=== PATIENT | female | born 1995 | race Caucasian/White ===

== ENCOUNTER 2023-02-02 16:45 | Emergency (ER) | payer MEDICAID ==
[~2023-02-02] VITALS: Ht 172.7 cm; Wt 65.0 kg
[2023-02-02 16:56] VITALS: O2SAT 98
[2023-02-02] MEDS ORDERED: METH-653 MT (17:20)
[2023-02-02] MEDS ORDERED: METHOCARBAMOL 750MG TABLET PO SCH (17:30)
[2023-02-02] MEDS ORDERED: ACETAMINOPHEN 325MG TABLET PO ONE (17:30)
[2023-02-02 17:50] VITALS: BP 114/68; PULSE 75; RESP 18; TEMP 98.2
[2023-02-02] MEDS ORDERED: METHOCARBAMOL 500MG TABLET PO NR (18:00)
== END 2023-02-02 17:52 | disposition home or self-care (01) ==
LOC: ER 16:45
DX: M54.50 Low back pain, unspecified (principal)
CPT/HCPCS: 99283